=== PATIENT | male | born 1980 | race American Indian/Alaskan Native ===

== ENCOUNTER 2019-10-09 18:55 | Emergency (ER) | payer SELFPAY ==
--- NOTE | 2019-10-09 19:02 | Event Note ---
ED Screening Note Date of service: 10/09/19 Time: 19:00 ED Screening Note: 39 y o male presents to Ed cc of heart palpatations and chest pain x 2 days This initial assessment/diagnostic orders/clinical plan/treatment(s) is/are subject to change based on patients health status, clinical progression and re- assessment by fellow clinical providers in the ED. Further treatment and workup at subsequent clinical providers discretion. Patient/guardian urged not to elope from the ED as their condition may be serious if not clinically assessed and managed. Initial orders include: labs cxr ekg
[2019-10-09] MEDS ORDERED: ASPIRIN 325 MG TAB PO ONE (19:04)
--- NOTE | 2019-10-09 19:49 | XRay Report ---
CHEST PA AND LATERAL VIEWS INDICATION: Chest Pain. COMPARISON: None. FINDINGS: Support devices: None. Heart: Within normal limits. Lungs/Pleura: No acute pulmonary or pleural findings. IMPRESSION: 1. No significant abnormality. Signer Name: Moe Katz MD Signed: 10/09/2019 7:44 PM Workstation Name: [id number]
[2019-10-09 20:29] LABS: Basophils % (Auto) 0.5 % (0.0-1.8); Eosinophils % (Auto) 0.7 % (0.0-4.3); Hematocrit 45.3 % (35.5-45.6); Hemoglobin 15.2 gm/dl (11.8-15.2); Lymphocytes # (Auto) 2.6 K/mm3 (1.2-5.4); Lymphocytes % (Auto) 44.4 % (13.4-35.0); Mean Corpuscular HGB Conc 34 % (32-34); Mean Corpuscular Volume 91 fl (84-94); Monocytes # (Auto) 0.6 K/mm3 (0.0-0.8); Monocytes % (Auto) 10.4 % (0.0-7.3); Platelet Count 244 K/mm3 (140-440); Red Blood Count 4.95 M/mm3 (3.65-5.03); Red Cell Distribution Width 13.5 % (13.2-15.2)
[2019-10-09 20:46] LABS: BUN/Creatinine Ratio 10; Blood Urea Nitrogen 9 mg/dL (9-20); Calcium 9.5 mg/dL (8.4-10.2); Hemolysis Index 17
[2019-10-10 04:44] VITALS: BP 137/64
--- NOTE | 2019-10-10 04:58 | Emergency Department Report ---
ED Anxiety HPI - General Chief Complaint: Chest Pain Stated Complaint: CHEST PAIN Time Seen by Provider: 10/10/19 04:40 Source: patient Mode of arrival: Ambulatory Limitations: No Limitations - History of Present Illness Initial Comments: 39-year-old male with a past medical history anxiety and panic attacks presents to the hospital complaining of anxiety and panic attacks. Patient recently returned from a trip from [facility] 4 days ago on October 06. Patient states while in [facility] he drank a lot, smokes a lot of marijuana, smokes about a Black and mi lds. Sunday patient had a panic attack which she describes as a flush feeling, palpitations, shortness of breath, hyperventilation, paresthesias to extremities. He denies chest pain during episode. Patient states he has been trying to "detox" since his return back home. He also states he is stressed about getting next year. He denies calf tenderness, leg edema, recent surgery, history of PE/DVT, or any hormone therapy. He currently denies chest pain or shortness of breath and states he wanted to get checked out today. He does not take any medications for anxiety. - Related Data Home Medications: Previous Rx's Medication Instructions Recorded Last Taken Type hydrOXYzine PAMOATE [Vistaril] 50 mg PO Q6HR PRN #20 capsule 10/10/19 Unknown Rx Allergies/Adverse Reactions: Allergies Allergy/AdvReac Type Severity Reaction Status Date / Time No Known Allergies Allergy Unverified 10/10/19 04:57 ED Review of Systems ROS: Stated complaint: CHEST PAIN Other details as noted in HPI Comment: All other systems reviewed and negative ED Past Medical Hx - Past Medical History Previous Medical History?: No - Surgical History Past Surgical History?: No - Medications Home Medications: Home Medications Medication Instructions Recorded Confirmed Last Taken Type hydrOXYzine PAMOATE [Vistaril] 50 mg PO Q6HR PRN #20 capsule 10/10/19 Unknown Rx ED Physical Exam - General Limitations: No Limitations - Other Other exam information: General: No acute distress Head: Atraumatic Eyes: normal appearance ENT: Moist mucous membranes Neck: Normal appearance, no midline tenderness Chest: Clear to auscultation bilaterally, chest wall nontender CV: Regular rate and rhythm Abdomen: Soft, normal bowel sounds, nontender, nondistended, no rebound or guarding Back: Normal inspection Extremity: Normal inspection infection, full range of motion, no calf tenderness or leg edema Neuro: Alert O x 3, no facial asymmetry, speech clear, no gross motor sensory deficit Psych: Appropriate behavior Skin: No rash ED Course Vital Signs 10/09/19 10/10/19 10/10/19 18:58 04:43 04:58 Temperature 98 F Pulse Rate 74 74 74 Respiratory 16 16 16 Rate Blood Pressure 155/77 137/64 [Right] O2 Sat by Pulse 97 99 98 Oximetry ED Medical Decision Making - Lab Data Result diagrams: 10/09/19 19:35 10/09/19 19:35 Lab Results 10/09/19 10/09/19 10/09/19 Range/Units 19:35 19:35 22:36 WBC 5.8 (4.5-11.0) K/mm3 RBC 4.95 (3.65-5.03) M/mm3 Hgb 15.2 (11.8-15.2) gm/dl Hct 45.3 (35.5-45.6) % MCV 91 (84-94) fl MCH 31 (28-32) pg MCHC 34 (32-34) % RDW 13.5 (13.2-15.2) % Plt Count 244 (140-440) K/mm3 Lymph % (Auto) 44.4 H (13.4-35.0) % [place] % (Auto) 10.4 H (0.0-7.3) % Eos % (Auto) 0.7 (0.0-4.3) % Baso % (Auto) 0.5 (0.0-1.8) % Lymph # 2.6 (1.2-5.4) K/mm3 [place] # 0.6 (0.0-0.8) K/mm3 Eos # 0.0 (0.0-0.4) K/mm3 Baso # 0.0 (0.0-0.1) K/mm3 Seg Neutrophils % 44.0 (40.0-70.0) % Seg Neutrophils # 2.6 (1.8-7.7) K/mm3 Sodium 137 (137-145) mmol/L Potassium 3.8 (3.6-5.0) mmol/L Chloride 98.5 (98-107) mmol/L Carbon Dioxide 24 (22-30) mmol/L Anion Gap 18 mmol/L BUN 9 (9-20) mg/dL Creatinine 0.9 (0.8-1.5) mg/dL Estimated GFR > 60 ml/min BUN/Creatinine Ratio 10 % Glucose 125 H (75-100) mg/dL Calcium 9.5 (8.4-10.2) mg/dL Troponin T < 0.010 < 0.010 (0.00-0.029) ng/mL 10/10/19 Range/Units 01:40 WBC (4.5-11.0) K/mm3 RBC (3.65-5.03) M/mm3 Hgb (11.8-15.2) gm/dl Hct (35.5-45.6) % MCV (84-94) fl MCH (28-32) pg MCHC (32-34) % RDW (13.2-15.2) % Plt Count (140-440) K/mm3 Lymph % (Auto) (13.4-35.0) % [place] % (Auto) (0.0-7.3) % Eos % (Auto) (0.0-4.3) % Baso % (Auto) (0.0-1.8) % Lymph # (1.2-5.4) K/mm3 [place] # (0.0-0.8) K/mm3 Eos # (0.0-0.4) K/mm3 Baso # (0.0-0.1) K/mm3 Seg Neutrophils % (40.0-70.0) % Seg Neutrophils # (1.8-7.7) K/mm3 Sodium (137-145) mmol/L Potassium (3.6-5.0) mmol/L Chloride (98-107) mmol/L Carbon Dioxide (22-30) mmol/L Anion Gap mmol/L BUN (9-20) mg/dL Creatinine (0.8-1.5) mg/dL Estimated GFR ml/min BUN/Creatinine Ratio % Glucose (75-100) mg/dL Calcium (8.4-10.2) mg/dL Troponin T < 0.010 (0.00-0.029) ng/mL - EKG Data -: EKG Interpreted by [facility] EKG shows normal: sinus rhythm, ST-T waves (repol, no stemi) Rate: normal - Radiology Data Radiology results: report reviewed CHEST PA AND LATERAL VIEWS INDICATION: Chest Pain. COMPARISON: None. FINDINGS: Support devices: None. Heart: Within normal limits. Lungs/Pleura: No acute pulmonary or pleural findings. IMPRESSION: 1. No significant abnormality. - Medical Decision Making pt present with c/o anxiety. Asymptomatic in the ED. Patient's PERC PE score is 0. cardiac workup and cxr neg. Plan to d/c with vistaril prn and outpt f/u - Differential Diagnosis anxiety, arrhythmia, anemia, pulmonary embolism Critical Care Time: No Critical care attestation.: If time is entered above; I have spent that time in minutes in the direct care of this critically ill patient, excluding procedure time. ED Disposition Clinical Impression: Anxiety Disposition: DC-01 TO HOME OR SELFCARE Is pt being admited?: No Does the pt Need Aspirin: No Condition: Stable Instructions: Anxiety (ED) Additional Instructions: Take the medication as prescribed. Follow-up with your doctor or doctor/clinic provided. Return if symptoms worsen as indicated by your discharge instructions. Prescriptions: hydrOXYzine PAMOATE [Vistaril] 50 mg PO Q6HR PRN #20 capsule PRN Reason: Anxiety Referrals: PRIMARY CARE [Primary Care Provider] - 3-5 Days [facility] [Provider Group] - 3-5 Days [facility] [Outside] - 3-5 Days Time of Disposition: 04:59
== END 2019-10-10 05:05 | disposition home or self-care (01) ==
LOC: ED 18:55
DX: F41.9 Anxiety disorder, unspecified (principal)
CPT/HCPCS: 36415; 71046; 80048; 84484; 85025; 93005; 93010

== ENCOUNTER 2020-11-09 20:17 | Emergency (ER) | payer BC ==
[2020-11-09] MEDS ORDERED: ASPIRIN 325 MG TAB PO ONE (21:43)
[2020-11-09 22:04] LABS: Hemoglobin 15.3 gm/dl (11.8-15.2); Red Blood Count 4.85 M/mm3 (3.65-5.03)
[2020-11-09 22:05] LABS: Eosinophils % (Auto) 3.1 % (0.0-4.3); Hematocrit 44.3 % (35.5-45.6); Lymphocytes % (Auto) 39.1 % (13.4-35.0); Mean Corpuscular HGB Conc 35 % (32-34); Mean Corpuscular Volume 91 fl (84-94); Monocytes % (Auto) 10.5 % (0.0-7.3); Platelet Count 251 K/mm3 (140-440); Red Cell Distribution Width 13.1 % (13.2-15.2)
[2020-11-09 22:06] LABS: Basophils # (Auto) 0.1 K/mm3 (0.0-0.1); Basophils % (Auto) 1.8 % (0.0-1.8); Eosinophils # (Auto) 0.2 K/mm3 (0.0-0.4); Lymphocytes # (Auto) 2.3 K/mm3 (1.2-5.4); Monocytes # (Auto) 0.6 K/mm3 (0.0-0.8)
--- NOTE | 2020-11-09 22:13 | XRay Report ---
CHEST 2 VIEWS INDICATION / CLINICAL INFORMATION: Chest Pain. COMPARISON: 10/09/2019 FINDINGS: SUPPORT DEVICES: None. HEART / MEDIASTINUM: No significant abnormality. LUNGS / PLEURA: No significant pulmonary or pleural abnormality. No pneumothorax. ADDITIONAL FINDINGS: No significant additional findings. IMPRESSION: 1. No acute findings. Signer Name: Ge Garcia MD Signed: 11/09/2020 10:09 PM Workstation Name: [id number]
[2020-11-09 22:20] LABS: BUN/Creatinine Ratio 12; Blood Urea Nitrogen 11 mg/dL (9-20); Calcium 9.4 mg/dL (8.4-10.2); Hemolysis Index 6
--- NOTE | 2020-11-10 00:43 | Emergency Department Report ---
ED Chest Pain HPI - General Chief Complaint: Chest Pain Stated Complaint: REFERRAL FROM URGENT CARE CHEST PAIN PUI?: Yes Source: patient, RN notes reviewed, old records reviewed Mode of arrival: Ambulatory Limitations: No Limitations - History of Present Illness Initial Comments: The patient was evaluated in the emergency department for symptoms described in the history of present illness. He/she was evaluated in the context of the global COVID-19 pandemic, which necessitated consideration that the patient might be at risk for infection with the virus that causes COVID-19. Institutional protocols and algorithms that pertain to the evaluation of patients at risk for COVID-19 are in a state of rapid change based on information released by regulatory bodies including the CDC and federal and state organizations. These policies and algorithms were followed during the patient's care in the emergency department. Please note that these policies, procedures and recommendations changed on a rapid basis. Patient is a 40-year-old gentleman, who is [id number], with a history of anxiety, recreational marijuana consumption, distant history of appendectomy at the age of 16, complicated by peritonitis, colostomy, now reversed. The patient presents to the ER today with a complaint of left-sided chest wall pain, present for approximately 3 weeks. There is no vomiting, diaphoresis, exertional shortness of breath or sweating. No fever. Positive cough. Positive body aches. No diarrhea. No recent surgery. Patient reports that he went to [place] 2 weeks ago, approximately 1 week after his chest pain started, was on a 3-1/2 to 4-hour flight, without leg pain or leg swelling. He was in [facility] for 2 days. He reports basically staying in the room, and feeling fairly anxious. He went to an urgent care center yesterday, was Covid tested, and was referred to the emergency room for his chest pain. He has not really taken anything [id number] for his chest pain. He reports that he works at [employer], and does a lot of heavy lifting for [employer]. Complaint: chest pain, other -: week(s) Pain Location: left chest Pain Radiation: none Severity: mild Quality: aching Consistency: intermittent Improves With: rest Worsens With: palpation Aspirin use within the Past 7 Days: (0) No - Related Data Previous Rx's Medication Instructions Recorded Last Taken Type hydrOXYzine PAMOATE [Vistaril] 50 mg PO Q6HR PRN #20 capsule 10/10/19 Unknown Rx Allergies Allergy/AdvReac Type Severity Reaction Status Date / Time No Known Allergies Allergy Verified 11/09/20 21:14 Heart Score - HEART Score History: Slightly suspicious EKG: Non-specific Age: < 45 Risk factors: No known risk factors Troponin: < normal limit HEART Score: 1 - Critical Actions Critical Actions: 0-3 pts:0.9-1.7%risk of adverse cardiac event.Candidate for discharge ED Review of Systems ROS: Stated complaint: REFERRAL FROM URGENT CARE CHEST PAIN Other details as noted in HPI Constitutional: denies: fever Respiratory: cough Cardiovascular: chest pain Gastrointestinal: denies: abdominal pain Musculoskeletal: arthralgia Neurological: weakness Psychiatric: anxiety ED Past Medical Hx - Past Medical History Previous Medical History?: No - Surgical History Past Surgical History?: Yes Additional Surgical History: appendix. temporary colstomy and reversal. - Social History Smoking Status: Former Smoker Substance Use Type: None - Medications Home Medications: Home Medications Medication Instructions Recorded Confirmed Last Taken Type hydrOXYzine PAMOATE [Vistaril] 50 mg PO Q6HR PRN #20 capsule 10/10/19 Unknown Rx ED Physical Exam - General Limitations: No Limitations General appearance: alert, in no apparent distress - Head Head exam: Present: atraumatic, normocephalic - Eye Eye exam: Present: normal appearance, EOMI. Absent: nystagmus - ENT ENT exam: Present: normal exam, normal orophraynx, mucous membranes moist, normal external ear exam - Neck Neck exam: Present: normal inspection, full ROM. Absent: tenderness, meningismus - Respiratory Respiratory exam: Present: normal lung sounds bilaterally, chest wall tenderness. Absent: respiratory distress, wheezes, rales, rhonchi, stridor - Cardiovascular Cardiovascular Exam: Present: regular rate, normal rhythm, normal heart sounds. Absent: bradycardia, tachycardia, irregular rhythm, systolic murmur, diastolic murmur, rubs, gallop - GI/Abdominal GI/Abdominal exam: Present: soft, normal bowel sounds. Absent: distended, tenderness, guarding, rebound, rigid, pulsatile mass - Rectal Rectal exam: Present: deferred - Extremities Exam Extremities exam: Present: normal inspection, full ROM, other (2+ pulses noted in the bilateral upper and lower extremities. There is no palpable cord. negative Homans sign. Muscular compartments are soft. The pelvis is stable.). Absent: pedal edema, calf tenderness - Back Exam Back exam: Present: normal inspection. Absent: tenderness, CVA tenderness (R), CVA tenderness (L), paraspinal tenderness, vertebral tenderness - Neurological Exam Neurological exam: Present: alert, oriented X3, normal gait, other (There is no facial droop. The tongue is midline. Extraocular movements are intact bilat erally. There is 5 out of 5 strength in bilateral upper and lower extremities. Sensation is intact to light touch bilateral upper and lower extremities. There is no past-pointing. There is no pronator drift.). Absent: motor sensory deficit - Psychiatric Psychiatric exam: Present: normal affect, normal mood, anxious - Skin Skin exam: Present: warm, dry, intact, normal color. Absent: rash ED Course Vital Signs 11/09/20 11/09/20 21:04 21:07 Temperature 97.6 F 97.6 F Pulse Rate 60 Respiratory 16 Rate Blood Pressure 137/84 O2 Sat by Pulse 99 Oximetry ANTONINO score - Antonino Score Age > 65: (0) No Aspirin use within the Past 7 Days: (0) No 3 or more CAD Risk Factors: (0) No 2 or more Angina events in past 24 hrs: (0) No Known CAD with more than 50% Stenosis: (0) No Elevated Cardiac Markers: (0) No ST Deviation Greater than 0.5mm: (0) No ANTONINO Score: 0 ED Medical Decision Making - Lab Data Result diagrams: 11/09/20 21:48 11/09/20 21:48 Vital Signs 11/09/20 11/09/20 21:04 21:07 Temperature 97.6 F 97.6 F Pulse Rate 60 Respiratory 16 Rate Blood Pressure 137/84 O2 Sat by Pulse 99 Oximetry Lab Results 11/09/20 11/09/20 Range/Units 21:48 21:48 WBC 5.8 (4.5-11.0) K/mm3 RBC 4.85 (3.65-5.03) M/mm3 Hgb 15.3 H (11.8-15.2) gm/dl Hct 44.3 (35.5-45.6) % MCV 91 (84-94) fl MCH 32 (28-32) pg MCHC 35 H (32-34) % RDW 13.1 L (13.2-15.2) % Plt Count 251 (140-440) K/mm3 Lymph % (Auto) 39.1 H (13.4-35.0) % [place] % (Auto) 10.5 H (0.0-7.3) % Eos % (Auto) 3.1 (0.0-4.3) % Baso % (Auto) 1.8 (0.0-1.8) % Lymph # (Auto) 2.3 (1.2-5.4) K/mm3 [place] # (Auto) 0.6 (0.0-0.8) K/mm3 Eos # (Auto) 0.2 (0.0-0.4) K/mm3 Baso # (Auto) 0.1 (0.0-0.1) K/mm3 Add Manual Diff Complete Seg Neutrophils % 45.5 (40.0-70.0) % Seg Neutrophils # 2.7 (1.8-7.7) K/mm3 Sodium 137 (137-145) mmol/L Potassium 3.6 (3.6-5.0) mmol/L Chloride 99.7 (98-107) mmol/L Carbon Dioxide 26 (22-30) mmol/L Anion Gap 15 mmol/L BUN 11 (9-20) mg/dL Creatinine 0.9 (0.8-1.3) mg/dL Estimated GFR > 60 ml/min BUN/Creatinine Ratio 12 % Glucose 105 H (75-100) mg/dL Calcium 9.4 (8.4-10.2) mg/dL Troponin T < 0.010 (0.00-0.029) ng/mL - EKG Data -: EKG Interpreted by Hi EKG shows normal: sinus rhythm Rate: normal - EKG Data When compared to previous EKG there are: no significant change Interpretation: unchanged when compared t 11/10/20 00:59 EKG #1 shows sinus rhythm, 58 bpm, bradycardia, high left ventricular voltage, Q-wave in V2. Abnormal EKG. Not a STEMI. Unchanged from prior EKG from September 2019 EKG #2 unchanged from prior. - Radiology Data Radiology results: pending, report reviewed, image reviewed Print Report Referring Physician: AR TAVERAS Patient Name: FERNANDO DIXON Date of : 1980 Sex: Male Report Date: 2020-11-09 Report Status: Finalized Findings [facility] [address] [place] [address] XRay Report Signed Patient: FERNANDO DIXON MR#: [id number] : 1980 Acct:[id number] Age/Sex: 40 / M ADM Date: 11/09/20 Loc: ED Attending Dr: Ordering Physician: GIRMA KUHN Date of Service: 11/09/20 Procedure(s): XR chest routine 2V Accession Number(s): [id number] cc: GIRMA KUHN Fluoro Time In Minutes: CHEST 2 VIEWS INDICATION / CLINICAL INFORMATION: Chest Pain. COMPARISON: 10/09/2019 FINDINGS: SUPPORT DEVICES: None. HEART / MEDIASTINUM: No significant abnormality. LUNGS / PLEURA: No significant pulmonary or pleural abnormality. No pneumothorax. ADDITIONAL FINDINGS: No significant additional findings. IMPRESSION: 1. No acute findings. Signer Name: Leonel Garcia MD Signed: 11/09/2020 10:09 PM Workstation Name: [id number] Transcribed By: RH Dictated By: LEONEL GARCIA III Electronically Authenticated By: LEONEL GARCIA III Signed Date/Time: 11/09/202208 DD/ 07 TD/TT: - Medical Decision Making Differential diagnosis, including but not limited to: Costochondritis, anxiety, COVID-19 Assessment and plan: 40-year-old gentleman, with 3 weeks of reproducible left- sided chest wall pain, EKG unchanged x2, and from prior, troponin negative x1, not currently tachycardic, tachypneic or hypoxic, PERC negative, low risk for major adverse cardiac event as per heart score, not hypoxic, ambulates with a steady gait, with a GCS of 15, clear chest x-ray, unremarkable mediastinum, equal pulses in the upper and lower extremities, no pulsatile abdominal mass, very unlikely to be aortic disease, acute coronary syndrome, or pulmonary embolism. Patient counseled that he is at low risk for major adverse event from the aforementioned. Rest, ice, compression, elevation, social isolation. Patient reports having had an outpatient Covid swab yesterday. He ambulates with a steady gait without desaturation. He does not appear to have an emergent medical condition present, after his initial ER work-up. He will need to follow-up with an outpatient primary care doctor or underwear welter. Have discussed this with the patient. He verbalizes understanding. Critical care attestation.: If time is entered above; I have spent that time in minutes in the direct care of this critically ill patient, excluding procedure time. ED Disposition Clinical Impression: Chest wall pain, Suspected 2019 novel coronavirus infection Disposition: DC- TO HOME OR SELFCARE Is pt being admited?: No Does the pt Need Aspirin: No Condition: Stable Instructions: Chest Pain (ED), Chest Wall Pain Additional Instructions: As we discussed, the patient most likely has novel coronavirus/COVID. the symptoms of COVID will typically persist 10 to 14 days. There is no cure at this time for COVID. Please make certain to self isolate and self quarantine, follow-up with an outpatient primary care doctor within the next 3 to 5 days, wash hands with soap and water frequently, thoroughly and often, patient may take the prescribed medications as needed and directed. Advance diet and drink plenty of fluids as tolerated. Avoid interactions with the very elderly, very young, and those with chronic medical conditions. Return to the emergency room right away with new pain, worsening pain, migration of pain, projectile vomiting, change in mental status, confusion, inability to tolerate liquid feeds, new, worsened or different symptoms not present on the initial emergency room evaluation. Patient may return to work earlier, if cleared to do so by a primary care doctor. Recommend follow-up with a primary care doctor within the next 3 to 5 days. Patient may also follow-up with a underwear welter for his chest wall pain within the next week to 2 weeks. Patient may alternate Tylenol and Motrin [id number] as needed for pain. Referrals: CHANTE GARCIA MD [Staff Physician] - 3-5 Days [facility] [Provider Group] - 3-5 Days Forms: Work/School Release Form(ED)
[2020-11-10] MEDS ORDERED: ACETAMINOPHEN 500 MG TAB PO ONE (00:55)
[2020-11-10] MEDS ORDERED: IBUPROFEN 400 MG TAB PO ONE (00:55)
[2020-11-10 01:08] VITALS: BP 135/81
== END 2020-11-10 01:29 | disposition home or self-care (01) ==
LOC: ED 20:17
DX: R07.89 Other chest pain (principal); Z20.828 Contact with and (suspected) exposure to other viral communicable diseases; Z79.899 Other long term (current) drug therapy
CPT/HCPCS: 36415; 71046; 80048; 84484; 85025; 93005